=== PATIENT | female | born 1990 | race African-American/Black ===

== ENCOUNTER 2019-07-01 13:33 | Emergency (ER) | payer OTHER ==
[2019-07-01 13:44] VITALS: RESP 18
[2019-07-01 14:25] LABS: Appearance,Urine Clear (Clear); Bacteria,Urine Rare /hpf; Bilirubin,Urine Negative (Negative); Blood,Urine Large (Negative); Color,Urine Light Red; Glucose,Urine (UA) Negative (Negative); Ketones,Urine Negative (Negative); Leukocyte Esterase,Urine Small (Negative); Nitrite,Urine Negative (Negative); Protein,Urine 1+ (Negative); RBC,Urine >182 /hpf (0-5); Specific Gravity,Urine 1.008 (1.001-1.035); Squamous Epithelial Cell,Urine 1 /hpf (0-4); Urobilinogen,Urine <2.0 mg/dL (<2.0); WBC,Urine 74 /hpf (0-5)
[2019-07-01] MEDS ORDERED: cefTRIAXone IN SWFI 1,000 MG/10 ML SYRINGE IVP STA (14:59)
[2019-07-01 15:05] LABS: Basophils % (A) 1 %; Eosinophils % (A) 1 %; HCT 41.5 % (34.0-46.0); HGB 13.4 gm/dL (11.4-16.0); Lymphocytes # (A) 1.4 k/uL (1.0-4.8); Lymphocytes % (A) 47 %; MCH 28.5 pg (25.0-35.0); MCHC 32.3 g/dL (31.0-37.0); MCV 88.4 fL (80.0-100.0); Mean Platelet Volume 10.7; Monocytes # (A) 0.2 k/uL (0-1.0); Monocytes % (A) 6 %; Neutrophils # (A) 1.2 k/uL (1.3-7.7); Neutrophils % (A) 43 %; Platelet Count 173 k/uL (150-450); RBC 4.69 m/uL (3.80-5.40); RDW 12.5 % (11.5-15.5); WBC 2.9 k/uL (3.8-10.6)
--- NOTE | 2019-07-01 15:16 | CT ---
EXAMINATION TYPE: CT abdomen pelvis wo con DATE OF EXAM: 07/01/2019 HISTORY: Right flank pain, rule out stone CT DLP: 560.6 mGycm. Automated Exposure Control for Dose Reduction was Utilized. TECHNIQUE: CT scan of the abdomen and pelvis is performed without oral or IV contrast. COMPARISON: NONE FINDINGS: Within the limitations of a non-contrast study, the following observations are made. LUNG BASES: Some respiratory motion artifact degradation. Trace pericardial effusion anterior-inferio r aspect LIVER/GB: Cholecystectomy clips. PANCREAS: No significant abnormality is seen. SPLEEN: No significant abnormality is seen. ADRENALS: No significant abnormality is seen. KIDNEYS: There is 2 mm nonobstructing right renal calculus upper to midpole level coronal image 54. N o definitive left-sided renal calculi. Mild fullness right renal pelvis without significant calyceal dilatation. Mild right-sided proximal hydroureter without distal hydroureter or obstructing calculus clearly seen. No intraluminal calculus and poorly distended bladder. BOWEL: Debris-filled stomach suggests recent meal ingestion. Suboptimal evaluation of bowel without e nteric contrast and patient having little intra-abdominal fat. Normal-appearing appendix is seen in t he upper midabdomen central aspect. Small bowel feces sign terminal ileum noted coronal image 34. Low -lying cecum at the right pelvis. Some prominence of fecal material throughout the right and proximal one half of transverse colon. No suspicious small or large bowel dilatation. GENITAL ORGANS: Anteverted uterus projects to right of midline.. LYMPH NODES: No greater than 1cm abdominal or pelvic lymph nodes are appreciated. OSSEOUS STRUCTURES: No significant abnormality is seen. OTHER: Prominent indentation or navel incidentally noted sagittal image 67. IMPRESSION: 1. There is single 2 mm nonobstructing calculus upper to mid pole level right kidney. No hydronephros is or obstructing ureteral calculi clearly identified bilaterally. 2. Overall nonobstructive bowel gas pattern. Mild to moderate proximal colonic fecal stasis is felt p resent. Small bowel feces sign terminal ileum consistent with delayed passage of ingested material to colonic level.
[2019-07-01 15:28] LABS: Large Platelets Present; Poikilocytosis (M) Present; Reactive Lymphocytes Present
[2019-07-01 15:45] LABS: ALT 14 U/L (4-34); AST 23 U/L (14-36); African American GFR (CKD) >90 (>60 ml/min/1.73 sqM); Albumin 4.8 g/dL (3.5-5.0); Alkaline Phosphatase 50 U/L (38-126); Anion Gap 9 mmol/L; Blood Urea Nitrogen 10 mg/dL (7-17); Calcium 9.6 mg/dL (8.4-10.2); Carbon Dioxide 27 mmol/L (22-30); Chloride 104 mmol/L (98-107); Glucose 86 mg/dL (74-99); Non-African American GFR(CKD) >90 (>60 ml/min/1.73 sqM); Potassium 4.5 mmol/L (3.5-5.1); Sodium 140 mmol/L (137-145); Total Bilirubin 0.8 mg/dL (0.2-1.3); Total Protein 8.4 g/dL (6.3-8.2)
[2019-07-01] MEDS ORDERED: KETOROLAC 30 MG/ML 1 ML VIAL IVP STA (16:12)
--- NOTE | 2019-07-01 16:41 | ED ---
Recheck HPI - General Chief Complaint: Recheck/Abnormal Lab/Rx Stated Complaint: UTI Time Seen by Provider: 07/01/19 13:47 Source: patient Mode of arrival: ambulatory Limitations: no limitations - History of Present Illness Initial Comments: 28-year-old female presenting for multiple complaints. Patient states that she has had dysuria urgency frequency. She states that she had seen her primary care provider for this and was on Bactrim for 3 days. She states this is not resolved the symptoms so she was put on Azo and ciprofloxacin--she states she w as scared when she noticed she had bright orange urine and no relief with the Cipro which she was only out for 1 day and he presents here primary care provider. Patient is also noting some slight right flank pain and was concerned of kidney stone so she presented to the ER. Patient also states she has had large clots in the toilet she was 3 weeks from last menses and feels this is early she states she is not sure if this is coming from the urethra or the vagina. Denies abdominal pain, severe flank pain, fevers, nausea, vomiting, diarrhea. Admits to midline pressure of the pelvic region. Remaining ROS (-). UPon arrival patient appears well no signs of acute distress. - Related Data Previous Rx's Medication Instructions Recorded Cephalexin [Keflex] 500 mg PO Q8HR 7 Days #21 cap 07/01/19 Ketorolac [Toradol] 10 mg PO Q12HR PRN 3 Days #6 tab 07/01/19 Allergies Allergy/AdvReac Type Severity Reaction Status Date / Time No Known Allergies Allergy Verified 07/01/19 13:34 Review of Systems ROS Statement: Those systems with pertinent positive or pertinent negative responses have been documented in the HPI. ROS Other: All systems not noted in ROS Statement are negative. Past Medical History Additional Past Medical History / Comment(s): kidney stones History of Any Multi-Drug Resistant Organisms: None Reported Past Surgical History: Cholecystectomy Past Psychological History: Anxiety, Depression Smoking Status: Never smoker Past Alcohol Use History: Occasional Past Drug Use History: None Reported General Exam - General Exam Comments Initial Comments: General: The patient is awake and alert, in no distress, and does not appear acutely ill. Eye: +3 mm pupils are equal, round and reactive to light, extra-ocular movements are intact. No nystagmus. There is normal conjunctiva bilaterally. No signs of icterus. Cardiovascular: There is a regular rate and rhythm. No murmur, rub or gallop is appreciated. Respiratory: Lungs are clear to auscultation, respirations are non-labored, breath sounds are equal. No wheezes, stridor, rales, or rhonchi. Gastrointestinal: Soft, non-distended, non-tender abdomen without masses or organomegaly noted. There is no rebound or guarding present. No CVA tenderness. Genital: No external lesions, blood in vaginal vault, os closed. no cervical motion or adnexal tenderness. blood is dark red no bright red blood or large clots appreciated. Musculoskeletal: Normal ROM, no tenderness. Strength 5/5. Sensation intact. Pulses equal bilaterally 2+. Neurological: A&O x 3. CN II-XII intact grossly, There are no obvious motor or sensory deficits. Coordination appears grossly intact. Speech is normal. Skin: Skin is warm and dry and no rashes or lesions are noted. Psychiatric: Cooperative, appropriate mood & affect, normal judgment. Limitations: no limitations Course Vital Signs 07/01/19 07/01/19 07/01/19 13:34 15:29 17:36 Temperature 98.3 F 98.2 F Pulse Rate 66 57 L 67 Respiratory 18 18 18 Rate Blood Pressure 114/63 104/50 134/95 O2 Sat by Pulse 99 100 98 Oximetry Medical Decision Making - Medical Decision Making 28yo female presenting for possible kidney stone. Possible vaginal bleeding vs hematuria. Vaginal bleeding present on pelvic exam. Mild leukopenia noted. Pt has no evidence of urolithiasis or obstructive stone on CT wo contrast. Noted 2mm nephrolithiasis in the right kidney. Patient has blood in urine but difficulty to distinguish from vaginal contamination as patient is having vaginal bleeding and was not wearing tampon at time of urine sample. Patient PCP was contacted, I spoke to him on patient's cell phone we discussed labs and f/u. Patient case discussed with Dr. Vera who is agreeable to treatment with keflex, urology, OB and PCP f/u. Patient is agreeable to this care plan. Return parameters strict including immediate return for fevers, or increasing pain. Patient verbalized understanding and was discharged appearing well. - Lab Data Result diagrams: 07/01/19 14:12 07/01/19 14:12 Lab Results 07/01/19 07/01/1920 Range/Units 13:57 13:58 14:12 WBC 2.9 L (3.8-10.6) k/uL RBC 4.69 (3.80-5.40) m/uL Hgb 13.4 (11.4-16.0) gm/dL Hct 41.5 (34.0-46.0) % MCV 88.4 (80.0-100.0) fL MCH 28.5 (25.0-35.0) pg MCHC 32.3 (31.0-37.0) g/dL RDW 12.5 (11.5-15.5) % Plt Count 173 (150-450) k/uL Neutrophils % 43 % Lymphocytes % 47 % Monocytes % 6 % Eosinophils % 1 % Basophils % 1 % Neutrophils # 1.2 L (1.3-7.7) k/uL Lymphocytes # 1.4 (1.0-4.8) k/uL Monocytes # 0.2 (0-1.0) k/uL Eosinophils # 0.0 (0-0.7) k/uL Basophils # 0.0 (0-0.2) k/uL Manual Slide Review Performed Reactive Lymphocytes Present Large Platelets Present Poikilocytosis (manual Present Sodium (137-145) mmol/L Potassium (3.5-5.1) mmol/L Chloride (98-107) mmol/L Carbon Dioxide (22-30) mmol/L Anion Gap mmol/L BUN (7-17) mg/dL Creatinine (0.52-1.04) mg/dL Est GFR (CKD-EPI)AfAm (>60 ml/min/1.73 sqM) Est GFR (CKD-EPI)NonAf (>60 ml/min/1.73 sqM) Glucose (74-99) mg/dL Calcium (8.4-10.2) mg/dL Total Bilirubin (0.2-1.3) mg/dL AST (14-36) U/L ALT (4-34) U/L Alkaline Phosphatase (38-126) U/L Total Protein (6.3-8.2) g/dL Albumin (3.5-5.0) g/dL Urine Color Light Red Urine Appearance Clear (Clear) Urine pH 7.0 (5.0-8.0) Ur Specific [place] 1.008 (1.001-1.035) Urine Protein 1+ H (Negative) Urine Glucose (UA) Negative (Negative) Urine Ketones Negative (Negative) Urine Blood Large H (Negative) Urine Nitrite Negative (Negative) Urine Bilirubin Negative (Negative) Urine Urobilinogen <2.0 (<2.0) mg/dL Ur Leukocyte Esterase Small H (Negative) Urine RBC >182 H (0-5) /hpf Urine WBC 74 H (0-5) /hpf Ur Squamous Epith Cells 1 (0-4) /hpf Urine Bacteria Rare H (None) /hpf Urine HCG, Qual Not Detected (Not Detectd) 07/01/19 Range/Units 14:12 WBC (3.8-10.6) k/uL RBC (3.80-5.40) m/uL Hgb (11.4-16.0) gm/dL Hct (34.0-46.0) % MCV (80.0-100.0) fL MCH (25.0-35.0) pg MCHC (31.0-37.0) g/dL RDW (11.5-15.5) % Plt Count (150-450) k/uL Neutrophils % % Lymphocytes % % Monocytes % % Eosinophils % % Basophils % % Neutrophils # (1.3-7.7) k/uL Lymphocytes # (1.0-4.8) k/uL Monocytes # (0-1.0) k/uL Eosinophils # (0-0.7) k/uL Basophils # (0-0.2) k/uL Manual Slide Review Reactive Lymphocytes Large Platelets Poikilocytosis (manual Sodium 140 (137-145) mmol/L Potassium 4.5 (3.5-5.1) mmol/L Chloride 104 (98-107) mmol/L Carbon Dioxide 27 (22-30) mmol/L Anion Gap 9 mmol/L BUN 10 (7-17) mg/dL Creatinine 0.71 (0.52-1.04) mg/dL Est GFR (CKD-EPI)AfAm >90 (>60 ml/min/1.73 sqM) Est GFR (CKD-EPI)NonAf >90 (>60 ml/min/1.73 sqM) Glucose 86 (74-99) mg/dL Calcium 9.6 (8.4-10.2) mg/dL Total Bilirubin 0.8 (0.2-1.3) mg/dL AST 23 (14-36) U/L ALT 14 (4-34) U/L Alkaline Phosphatase 50 (38-126) U/L Total Protein 8.4 H (6.3-8.2) g/dL Albumin 4.8 (3.5-5.0) g/dL Urine Color Urine Appearance (Clear) Urine pH (5.0-8.0) Ur Specific [place] (1.001-1.035) Urine Protein (Negative) Urine Glucose (UA) (Negative) Urine Ketones (Negative) Urine Blood (Negative) Urine Nitrite (Negative) Urine Bilirubin (Negative) Urine Urobilinogen (<2.0) mg/dL Ur Leukocyte Esterase (Negative) Urine RBC (0-5) /hpf Urine WBC (0-5) /hpf Ur Squamous Epith Cells (0-4) /hpf Urine Bacteria (None) /hpf Urine HCG, Qual (Not Detectd) Disposition Clinical Impression: Nephrolithiasis, Vaginal bleeding, UTI (urinary tract infection) Disposition: HOME SELF-CARE Condition: Good Instructions (If sedation given, give patient instructions): Dysfunctional Uterine Bleeding (ED), Kidney Stones (ED) Additional Instructions: Please use medication as discussed. Please follow-up with family doctor in the next 2 days, urology in next 2-3 days. Immediate return to ER for fever, chills, flu like symptoms. Please return to emergency room if the symptoms increase or worsen or for any other concerns. Prescriptions: Cephalexin [Keflex] 500 mg PO Q8HR 7 Days #21 cap Ketorolac [Toradol] 10 mg PO Q12HR PRN 3 Days #6 tab PRN Reason: Pain Is patient prescribed a controlled substance at d/c from ED?: No Referrals: Alessio Camp [Primary Care Provider] - 1-2 days Eugenio Ríos MD [STAFF PHYSICIAN] - 1-2 days Fozia Menendez DO [Doctor of Osteopathic Medicine] - 1-2 days Time of Disposition: 17:00
[2019-07-01 17:39] VITALS: BP 134/95; PULSE 67; TEMP 98.2
== END 2019-07-01 17:03 | disposition home or self-care (01) ==
LOC: EC 13:33
DX: N39.0 Urinary tract infection, site not specified (principal); N20.0 Calculus of kidney; N93.9 Abnormal uterine and vaginal bleeding, unspecified; D72.819 Decreased white blood cell count, unspecified; Z90.49 Acquired absence of other specified parts of digestive tract
CPT/HCPCS: 36415; 80053; 85025; 81001; 81025; 87086; 74176; 99284; 96374; 96375; J0696; J1885

== ENCOUNTER → 2019-08-12 | Outpatient (CLI) | payer OTHER ==
[2019-08-13 02:34] LABS: Thyroid Peroxidase Antibodies <28.0 U/mL (0.0-60.0)
== END | disposition home or self-care (01) ==
LOC: LABWHC1 15:31
PROVIDERS: ATTEND Otolaryngology
DX: E01.0 Iodine-deficiency related diffuse (endemic) goiter (principal)
CPT/HCPCS: 36415; 85652; 86140; 86376; 86800